=== PATIENT | male | born 1960 | race Caucasian/White ===

== ENCOUNTER 2020-08-30 14:35 | Outpatient (RCR) | payer MEDICAID, SELFPAY ==
--- NOTE | 2020-09-02 10:58 | HP.FCE ---
Floor (Occasional 1-33% of Day): 35# Floor (Frequent 34-66% of Day): 18# Floor (Constant 67-100% of Day): NA Floor PDL: Light-Medium Knee (Occasional 1-33% of Day): 40# Knee (Frequent 34-66% of Day): 20# Knee (Constant 67-100% of Day): NA Knee PDL: Light-Medium Waist (Occasional 1-33% of Day): 40# Waist (Frequent 34-66% of Day): 20# Waist (Constant 67-100% of Day): NA Waist PDL: Light-Medium Shoulder (Occasional 1-33% of Day): 40# Shoulder (Frequent 34-66% of Day): 20# Shoulder (Constant 67-100% of Day): NA Shoulder PDL: Light-Medium Overhead (Occasional 1-33% of Day): 35# Overhead (Frequent 34-66% of Day): 18# Overhead (Constant 67-100% of Day): NA Overhead PDL: Light-Medium Comments: would not recommend constant lift as pt has increase in pain. Bending: Occasional Ability (1-33% of day) Kneeling: No Ablility (0% of day) Reaching out: Frequent Ability (34-66% of day) Reaching up: Frequent Ability (34-66% of day) Sitting: Frequent Ability (34-66% of day) Walking: Occasional Ability (1-33% of day) Standing: Occasional Ability (1-33% of day) Duration Sedentary Sedentary Light Light Light Medium Medium Medium Heavy Very Heavy Heavy Occasional (0-33% of day) Frequent (34-66% of day) Constant (67-100% of day) 10 # Negligible Negligible 15 # 8 # Negligible 20 # 10# Negli. 35 # 18 # 7 # 50 # 25 # 10 # 75 # 100 # >100 # 38 # 50 # >50 # 15 # 20 # >20 # Weight:: 117.48 kg Hand Dominance: Right Medical History Including Restrictions: This 60 year old male was seen for FCE- pt states he has been on short term disability since August 26, 2019. 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 SS disability 2019. Pt states he started seeing pain management in April or 2020. Pt states he has had injections without success. Pt states he was being seen for his back and started Physical therapy in July 2020. pt states he is scheduled until end of September or beginning of October. Pt states [facility] recommended surgery on his back but he ended up with cellulitis in his left LE and swelling in bilateral LE. pt states he did take laxsics and surgery was cancelled. pt states he continues to try to figure out his medical conditions until he can have back surgery. Diagnoses: bilateral hip replacements Symptoms: HTN dx about 5 or 6 years ago cont. by medication. Rotatory cuff tears Pain: pt states with sitting his pain is better with sitting. unrated Work History: This 60 year old male states he was last employed at [employer]. Pt states he was employed for 12 years. 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 pt states he was required to lift 15-20#. pt states he was on his feet and states he did have to shovel meat mix that were bad. Pt states he did have leisure to sit if needed. pt states he was painful during and after work. pt states prior to the above employment pt was at [employer]. Behavioral: pt corporative throughout assessment. ADLS: Pt states he lives with his brother in a [place] home with basement. Pt states he has 3 entry steps with no rail. pt states 11 steps to basement with hand rail. Pt states he has tub/shower combo. pt states he can perform his bathing/dressing tasks. pt states he does sit for getting dress. Pt states his can do his laundry (in basement) at IND level. 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 Hip flex 4+/5. quad/ham 4+/5. pt demonstrates with generalized weakness Right Surety Bond Agent Strength Average: 76.66 Right Surety Bond Agent Strength Percentile: .9% Left Surety Bond Agent Strength Average: 75.00 Left Surety Bond Agent Strength Percentile: 25% Right Lateral Pinch Average: 19.33 Right Lateral Pinch Percentile: 50% Left Lateral Pinch Average: 19.33 Left Lateral Pinch Percentile: 50% Right Tripod Pinch Average: 20.00 Right Tripod Pinch Percentile: 75% Left Tripod Pinch Average: 20.00 Left Tripod Pinch Percentile: 75% Comments: resting heart rate 106 Sensation: Denies Fine Motor: denies Balance: pt demonstrated normal/good+ balance. No observed LOB during assessment. Bending: pt demonstrated the ability to bend forward 3/3 times, 10/10 times and 5/10 rapidly. pt SOB with this task. pt reported low back 6/10. pt can bend forward on an occasional abiltiy Squatting: pt demonstrated the ability to squat 3/3 pain right side low back 6/10, pt completed 5/10 pain in low back 6/10 - pt completed 5/10. and needed to sit, pts heart rate 123. pt completed 01/16 at increase speed reports back pain 7/10 pt SOB and heart rate. pt can squat on a occasional ability Kneeling: PT demonstrated the ability to partial kneel with external support. pt report pain 7/10. no ability Reaching out/up: pt demonstrated the ability to reach out/up 3/3, 10, 10 and 10/10 rapidly pt can perform on a frequent ability. heart rate 104 Walking: pt demonstrated the ability heart rate 131 Standing: pt demonstrated the ability to stand for 4 min shifting body weight -pt can stand on a occasional ability Sitting: pt demonstrated the ability to sit 40 min with no apparent or expressed discomfort. pt can sit on a frequent ability. Climbing Stairs: pt demonstrated the ability to ascend/descend 10 steps with a reciprocal step pattern with use of handrail. Floor Lift: Pt demonstrated the ability to lift 35# maximally from this level with fair lifting mechanics. Knee Lift: Pt demonstrated the ability to lift 35# from this level with fair lifting mechanics. pt reported not hard but hurts back 6/10 pt demonstrated lift ability at 40# maximally from this level with increase in back pain. Waist Lift: pt demonstrated the ability to lift 40# maximally from this level. Shoulder Lift: 40# with poor lifting mechanics - use of UE only and asked to lift and place on top of box, without moving his feet and twisting his torso. pt able to do so. Overhead Lift: pt demonstrated the ability to lift 35# maximally from this level with good ability. Carrying: pt demonstrated the ability to carry 35# for 20 feet with fair ability. Comments: Pts heart rate continued to fluctuate between 106- 131 during assessment
--- NOTE | 2020-09-02 10:58 | HP.OTFCE.D ---
FCE D/C Summary - Discharge [facility] PLASCENCIA was seen for a one time visit for an FCE on 08/30/20 and is discharged.
--- NOTE | 2020-09-02 11:02 | HP.OTFCE_ITS ---
Floor (Occasional 1-33% of Day): 35# Floor (Frequent 34-66% of Day): 18# Floor (Constant 67-100% of Day): NA Floor PDL: Light-Medium Knee (Occasional 1-33% of Day): 40# Knee (Frequent 34-66% of Day): 20# Knee (Constant 67-100% of Day): NA Knee PDL: Light-Medium Waist (Occasional 1-33% of Day): 40# Waist (Frequent 34-66% of Day): 20# Waist (Constant 67-100% of Day): NA Waist PDL: Light-Medium Shoulder (Occasional 1-33% of Day): 40# Shoulder (Frequent 34-66% of Day): 20# Shoulder (Constant 67-100% of Day): NA Shoulder PDL: Light-Medium Overhead (Occasional 1-33% of Day): 35# Overhead (Frequent 34-66% of Day): 18# Overhead (Constant 67-100% of Day): NA Overhead PDL: Light-Medium Comments: would not recommend constant lift as pt has increase in pain. Bending: Occasional Ability (1-33% of day) Kneeling: No Ablility (0% of day) Reaching out: Frequent Ability (34-66% of day) Reaching up: Frequent Ability (34-66% of day) Sitting: Frequent Ability (34-66% of day) Walking: Occasional Ability (1-33% of day) Standing: Occasional Ability (1-33% of day) Duration Sedentary Sedentary Light Light Light Medium Medium Medium Heavy Very Heavy Heavy Occasional (0-33% of day) Frequent (34-66% of day) Constant (67-100% of day) 10 # Negligible Negligible 15 # 8 # Negligible 20 # 10# Negli. 35 # 18 # 7 # 50 # 25 # 10 # 75 # 100 # >100 # 38 # 50 # >50 # 15 # 20 # >20 # Weight:: 117.48 kg Hand Dominance: Right Medical History Including Restrictions: This 60 year old male was seen for FCE- pt states he has been on short term disability since August 26, 2019. 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 SS disability 2019. Pt states he started seeing pain management in April or 2020. Pt states he has had injections without success. Pt states he was being seen for his back and started Physical therapy in July 2020. pt states he is scheduled until end of September or beginning of October. Pt states [facility] recommended surgery on his back but he ended up with cellulitis in his left LE and swelling in bilateral LE. pt states he did take laxsics and surgery was cancelled. pt states he continues to try to figure out his medical conditions until he can have back surgery. Diagnoses: bilateral hip replacements Symptoms: HTN dx about 5 or 6 years ago cont. by medication. Rotatory cuff tears Pain: pt states with sitting his pain is better with sitting. unrated Work History: This 60 year old male states he was last employed at [employer]. Pt states he was employed for 12 years. 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 pt states he was required to lift 15-20#. pt states he was on his feet and states he did have to shovel meat mix that were bad. Pt states he did have leisure to sit if needed. pt states he was painful during and after work. pt states prior to the above employment pt was at [employer]. Behavioral: pt corporative throughout assessment. ADLS: Pt states he lives with his brother in a [place] home with basement. Pt states he has 3 entry steps with no rail. pt states 11 steps to basement with hand rail. Pt states he has tub/shower combo. pt states he can perform his bathing/dressing tasks. pt states he does sit for getting dress. Pt states his can do his laundry (in basement) at IND level. 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 Hip flex 4+/5. quad/ham 4+/5. pt demonstrates with generalized weakness Right Electrolysis Needle Operator Strength Average: 76.66 Right Electrolysis Needle Operator Strength Percentile: .9% Left Electrolysis Needle Operator Strength Average: 75.00 Left Electrolysis Needle Operator Strength Percentile: 25% Right Lateral Pinch Average: 19.33 Right Lateral Pinch Percentile: 50% Left Lateral Pinch Average: 19.33 Left Lateral Pinch Percentile: 50% Right Tripod Pinch Average: 20.00 Right Tripod Pinch Percentile: 75% Left Tripod Pinch Average: 20.00 Left Tripod Pinch Percentile: 75% Comments: resting heart rate 106 Sensation: Denies Fine Motor: denies Balance: pt demonstrated normal/good+ balance. No observed LOB during assessment. Bending: pt demonstrated the ability to bend forward 3/3 times, 10/10 times and 5/10 rapidly. pt SOB with this task. pt reported low back 6/10. pt can bend forward on an occasional abiltiy Squatting: pt demonstrated the ability to squat 3/3 pain right side low back 6/10, pt completed 5/10 pain in low back 6/10 - pt completed 5/10. and needed to sit, pts heart rate 123. pt completed 01/16 at increase speed reports back pain 7/10 pt SOB and heart rate. pt can squat on a occasional ability Kneeling: PT demonstrated the ability to partial kneel with external support. pt report pain 7/10. no ability Reaching out/up: pt demonstrated the ability to reach out/up 3/3, 10, 10 and 10/10 rapidly pt can perform on a frequent ability. heart rate 104 Walking: pt demonstrated the ability heart rate 131 Standing: pt demonstrated the ability to stand for 4 min shifting body weight - pt can stand on a occasional ability Sitting: pt demonstrated the ability to sit 40 min with no apparent or expressed discomfort. pt can sit on a frequent ability. Climbing Stairs: pt demonstrated the ability to ascend/descend 10 steps with a reciprocal step pattern with use of handrail. Floor Lift: Pt demonstrated the ability to lift 35# maximally from this level with fair lifting mechanics. Knee Lift: Pt demonstrated the ability to lift 35# from this level with fair lifting mechanics. pt reported not hard but hurts back 6/10 pt demonstrated lift ability at 40# maximally from this level with increase in back pain. Waist Lift: pt demonstrated the ability to lift 40# maximally from this level. Shoulder Lift: 40# with poor lifting mechanics - use of UE only and asked to lift and place on top of box, without moving his feet and twisting his torso. pt able to do so. Overhead Lift: pt demonstrated the ability to lift 35# maximally from this level with good ability. Carrying: pt demonstrated the ability to carry 35# for 20 feet with fair ability. Comments: Pts heart rate continued to fluctuate between 106- 131 during assessment
--- NOTE | 2020-09-08 10:11 | HP.FCE ---
Floor (Occasional 1-33% of Day): 35# Floor (Frequent 34-66% of Day): 18# Floor (Constant 67-100% of Day): NA Floor PDL: Light-Medium Knee (Occasional 1-33% of Day): 40# Knee (Frequent 34-66% of Day): 20# Knee (Constant 67-100% of Day): NA Knee PDL: Light-Medium Waist (Occasional 1-33% of Day): 40# Waist (Frequent 34-66% of Day): 20# Waist (Constant 67-100% of Day): NA Waist PDL: Light-Medium Shoulder (Occasional 1-33% of Day): 40# Shoulder (Frequent 34-66% of Day): 20# Shoulder (Constant 67-100% of Day): NA Shoulder PDL: Light-Medium Overhead (Occasional 1-33% of Day): 35# Overhead (Frequent 34-66% of Day): 18# Overhead (Constant 67-100% of Day): NA Overhead PDL: Light-Medium Comments: would not recommend constant lift as pt has increase in pain. Bending: Occasional Ability (1-33% of day) Kneeling: No Ablility (0% of day) Reaching out: Frequent Ability (34-66% of day) Reaching up: Frequent Ability (34-66% of day) Sitting: Frequent Ability (34-66% of day) Walking: Occasional Ability (1-33% of day) Standing: Occasional Ability (1-33% of day) Duration Sedentary Sedentary Light Light Light Medium Medium Medium Heavy Very Heavy Heavy Occasional (0-33% of day) Frequent (34-66% of day) Constant (67-100% of day) 10 # Negligible Negligible 15 # 8 # Negligible 20 # 10# Negli. 35 # 18 # 7 # 50 # 25 # 10 # 75 # 100 # >100 # 38 # 50 # >50 # 15 # 20 # >20 # Weight:: 117.48 kg Hand Dominance: Right Medical History Including Restrictions: This 60 year old male was seen for FCE- pt states he has been on short term disability since August 26, 2019. 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 SS disability 2019. Pt states he started seeing pain management in April or 2020. Pt states he has had injections without success. Pt states he was being seen for his back and started Physical therapy in July 2020. pt states he is scheduled until end of September or beginning of October. Pt states [facility] recommended surgery on his back but he ended up with cellulitis in his left LE and swelling in bilateral LE. pt states he did take laxsics and surgery was cancelled. pt states he continues to try to figure out his medical conditions until he can have back surgery. Diagnoses: bilateral hip replacements Symptoms: HTN dx about 5 or 6 years ago cont. by medication. Rotatory cuff tears Pain: pt states with sitting his pain is better with sitting. unrated Work History: This 60 year old male states he was last employed at [employer]. Pt states he was employed for 12 years. 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 pt states he was required to lift 15-20#. pt states he was on his feet and states he did have to shovel meat mix that were bad. Pt states he did have leisure to sit if needed. pt states he was painful during and after work. pt states prior to the above employment pt was at [employer]. Behavioral: pt corporative throughout assessment. ADLS: Pt states he lives with his brother in a [place] home with basement. Pt states he has 3 entry steps with no rail. pt states 11 steps to basement with hand rail. Pt states he has tub/shower combo. pt states he can perform his bathing/dressing tasks. pt states he does sit for getting dress. Pt states his can do his laundry (in basement) at IND level. 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 Hip flex 4+/5. quad/ham 4+/5. pt demonstrates with generalized weakness Right Nurse Monitoring Strength Average: 76.66 Right Nurse Monitoring Strength Percentile: .9% Left Nurse Monitoring Strength Average: 75.00 Left Nurse Monitoring Strength Percentile: 25% Right Lateral Pinch Average: 19.33 Right Lateral Pinch Percentile: 50% Left Lateral Pinch Average: 19.33 Left Lateral Pinch Percentile: 50% Right Tripod Pinch Average: 20.00 Right Tripod Pinch Percentile: 75% Left Tripod Pinch Average: 20.00 Left Tripod Pinch Percentile: 75% Comments: resting heart rate 106 Sensation: Denies Fine Motor: denies Balance: pt demonstrated normal/good+ balance. No observed LOB during assessment. Bending: pt demonstrated the ability to bend forward 3/3 times, 10/10 times and 5/10 rapidly. pt SOB with this task. pt reported low back 6/10. pt can bend forward on an occasional abiltiy Squatting: pt demonstrated the ability to squat 3/3 pain right side low back 6/10, pt completed 5/10 pain in low back 6/10 - pt completed 5/10. and needed to sit, pts heart rate 123. pt completed 01/16 at increase speed reports back pain 7/10 pt SOB and heart rate. pt can squat on a occasional ability Kneeling: PT demonstrated the ability to partial kneel with external support. pt report pain 7/10. no ability Reaching out/up: pt demonstrated the ability to reach out/up 3/3, 10, 10 and 10/10 rapidly pt can perform on a frequent ability. heart rate 104 Walking: pt demonstrated the ability heart rate 131 Standing: pt demonstrated the ability to stand for 4 min shifting body weight -pt can stand on a occasional ability Sitting: pt demonstrated the ability to sit 40 min with no apparent or expressed discomfort. pt can sit on a frequent ability. Climbing Stairs: pt demonstrated the ability to ascend/descend 10 steps with a reciprocal step pattern with use of handrail. Floor Lift: Pt demonstrated the ability to lift 35# maximally from this level with fair lifting mechanics. Knee Lift: Pt demonstrated the ability to lift 35# from this level with fair lifting mechanics. pt reported not hard but hurts back 6/10 pt demonstrated lift ability at 40# maximally from this level with increase in back pain. Waist Lift: pt demonstrated the ability to lift 40# maximally from this level. Shoulder Lift: 40# with poor lifting mechanics - use of UE only and asked to lift and place on top of box, without moving his feet and twisting his torso. pt able to do so. Overhead Lift: pt demonstrated the ability to lift 35# maximally from this level with good ability. Carrying: pt demonstrated the ability to carry 35# for 20 feet with fair ability. Comments: Pts heart rate continued to fluctuate between 106- 131 during assessment
--- NOTE | 2020-09-13 08:27 | HP.FCE ---
Floor (Occasional 1-33% of Day): 35# Floor (Frequent 34-66% of Day): 18# Floor (Constant 67-100% of Day): NA Floor PDL: Light-Medium Knee (Occasional 1-33% of Day): 40# Knee (Frequent 34-66% of Day): 20# Knee (Constant 67-100% of Day): NA Knee PDL: Light-Medium Waist (Occasional 1-33% of Day): 40# Waist (Frequent 34-66% of Day): 20# Waist (Constant 67-100% of Day): NA Waist PDL: Light-Medium Shoulder (Occasional 1-33% of Day): 40# Shoulder (Frequent 34-66% of Day): 20# Shoulder (Constant 67-100% of Day): NA Shoulder PDL: Light-Medium Overhead (Occasional 1-33% of Day): 35# Overhead (Frequent 34-66% of Day): 18# Overhead (Constant 67-100% of Day): NA Overhead PDL: Light-Medium Comments: would not recommend constant lift as pt has increase in pain. Bending: Occasional Ability (1-33% of day) Kneeling: No Ablility (0% of day) Reaching out: Frequent Ability (34-66% of day) Reaching up: Frequent Ability (34-66% of day) Sitting: Frequent Ability (34-66% of day) Walking: Occasional Ability (1-33% of day) Standing: Occasional Ability (1-33% of day) Duration Sedentary Sedentary Light Light Light Medium Medium Medium Heavy Very Heavy Heavy Occasional (0-33% of day) Frequent (34-66% of day) Constant (67-100% of day) 10 # Negligible Negligible 15 # 8 # Negligible 20 # 10# Negli. 35 # 18 # 7 # 50 # 25 # 10 # 75 # 100 # >100 # 38 # 50 # >50 # 15 # 20 # >20 # Weight:: 117.48 kg Hand Dominance: Right Medical History Including Restrictions: This 60 year old male was seen for FCE- pt states he has been on short term disability since August 26, 2019- Nov 2019. 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 SS disability 2019 to present day. Pt states he started seeing pain management in April or May 2020. Pt states he has had injections without success. Pt states he was being seen for his back and started Physical therapy in July 2020. pt states he is scheduled until end of September or beginning of October. Pt states [facility] recommended surgery on his back but he ended up with cellulitis in his left LE and swelling in bilateral LE. pt states he did take laxsics and surgery was cancelled. pt states he continues to try to figure out his medical conditions until he can have back surgery. Diagnoses: bilateral hip replacements Symptoms: HTN dx about 5 or 6 years ago cont. by medication. Rotatory cuff tears Pain: pt states with sitting his pain is better with sitting. unrated Work History: This 60 year old male states he was last employed at [employer]. Pt states he was employed for 12 years. 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 pt states he was required to lift 15-20#. pt states he was on his feet and states he did have to shovel meat mix that were bad. Pt states he did have leisure to sit if needed. pt states he was painful during and after work. pt states prior to the above employment pt was at [employer]. Behavioral: pt corporative throughout assessment. ADLS: Pt states he lives with his brother in a [place] home with basement. Pt states he has 3 entry steps with no rail. pt states 11 steps to basement with hand rail. Pt states he has tub/shower combo. pt states he can perform his bathing/dressing tasks. pt states he does sit for getting dress. Pt states his can do his laundry (in basement) at IND level. 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 Hip flex 4+/5. quad/ham 4+/5. pt demonstrates with generalized weakness Right Special Librarian Strength Average: 76.66 Right Special Librarian Strength Percentile: .9% Left Special Librarian Strength Average: 75.00 Left Special Librarian Strength Percentile: 25% Right Lateral Pinch Average: 19.33 Right Lateral Pinch Percentile: 50% Left Lateral Pinch Average: 19.33 Left Lateral Pinch Percentile: 50% Right Tripod Pinch Average: 20.00 Right Tripod Pinch Percentile: 75% Left Tripod Pinch Average: 20.00 Left Tripod Pinch Percentile: 75% Comments: resting heart rate 106 Sensation: Denies Fine Motor: denies Balance: pt demonstrated normal/good+ balance. No observed LOB during assessment. Bending: pt demonstrated the ability to bend forward 3/3 times, 10/10 times and 5/10 rapidly. pt SOB with this task. pt reported low back 6/10. pt can bend forward on an occasional abiltiy Squatting: pt demonstrated the ability to squat 3/3 pain right side low back 6/10, pt completed 5/10 pain in low back 6/10 - pt completed 5/10. and needed to sit, pts heart rate 123. pt completed 01/16 at increase speed reports back pain 7/10 pt SOB and heart rate. pt can squat on a occasional ability Kneeling: PT demonstrated the ability to partial kneel with external support. pt report pain 7/10. no ability Reaching out/up: pt demonstrated the ability to reach out/up 3/3, 10, 10 and 10/10 rapidly pt can perform on a frequent ability. heart rate 104 Walking: pt demonstrated the ability heart rate 131 Standing: pt demonstrated the ability to stand for 4 min shifting body weight -pt can stand on a occasional ability Sitting: pt demonstrated the ability to sit 40 min with no apparent or expressed discomfort. pt can sit on a frequent ability. Climbing Stairs: pt demonstrated the ability to ascend/descend 10 steps with a reciprocal step pattern with use of handrail. Floor Lift: Pt demonstrated the ability to lift 35# maximally from this level with fair lifting mechanics. Knee Lift: Pt demonstrated the ability to lift 35# from this level with fair lifting mechanics. pt reported not hard but hurts back 6/10 pt demonstrated lift ability at 40# maximally from this level with increase in back pain. Waist Lift: pt demonstrated the ability to lift 40# maximally from this level. Shoulder Lift: 40# with poor lifting mechanics - use of UE only and asked to lift and place on top of box, without moving his feet and twisting his torso. pt able to do so. Overhead Lift: pt demonstrated the ability to lift 35# maximally from this level with good ability. Carrying: pt demonstrated the ability to carry 35# for 20 feet with fair ability. Comments: Pts heart rate continued to fluctuate between 106- 131 during assessment
== END 2020-08-30 19:00 | disposition home or self-care (01) ==
LOC: OT 14:35
PROVIDERS: PCP Family Medicine
DX: M75.100 Unspecified rotator cuff tear or rupture of unspecified shoulder, not specified as traumatic (principal); Z79.899 Other long term (current) drug therapy; M15.9 Polyosteoarthritis, unspecified; G83.10 Monoplegia of lower limb affecting unspecified side; M48.061 Spinal stenosis, lumbar region without neurogenic claudication; M46.96 Unspecified inflammatory spondylopathy, lumbar region; M54.16 Radiculopathy, lumbar region; M51.36 Other intervertebral disc degeneration, lumbar region; M79.10 Myalgia, unspecified site; G89.4 Chronic pain syndrome; R60.9 Edema, unspecified; L03.90 Cellulitis, unspecified; M54.9 Dorsalgia, unspecified
CPT/HCPCS: 97750